=== PATIENT | male | born 1965 | race Caucasian/White ===

== ENCOUNTER 2024-03-12 14:34 | Emergency (ER) | payer OTHER, SELFPAY ==
[2024-03-12 14:44] VITALS: BP 145/81; PULSE 82; RESP 20; TEMP 36.3; O2SAT 99
--- NOTE | 2024-03-12 15:08 | ED.ANIMALBIT ---
HPI - Animal Bite General Chief Complaint: Animal Bite Stated Complaint: dog - bite or scratch Time Seen by Provider: 03/12/24 14:56 Source: patient and RN notes reviewed Mode of arrival: ambulatory Limitations: no limitations History of Present Illness HPI narrative: Patient presents today with a dog bite or scratch to the posterior right calf that was sustained approximately 45 minutes prior to arrival. 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 Patient is unsure which. Patient is not up-to-date on his tetanus vaccine. He is unsure of the dog's status. Related Data Home Medications Medication Instructions Recorded Confirmed amlodipine 5 mg tablet 5 mg PO BID 11/24/20 dapagliflozin propanediol 10 mg 10 mg PO DAILY 11/24/20 tablet (Farxiga) metformin 1,000 mg tablet 1,000 mg PO BID 11/24/20 ramipril 10 mg tablet 10 mg PO DAILY 11/24/20 semaglutide 1 mg/dose (2 mg/1.5 1 mg subcut WEEKLY 11/24/20 mL) subcutaneous pen injector (Ozempic) simvastatin 20 mg tablet 20 mg PO DAILY 11/24/20 tirzepatide 10 mg/0.5 mL mg subcut 03/12/24 subcutaneous pen injector (Mounjaro) Allergies Allergy/AdvReac Type Severity Reaction Status Date / Time penicillamine Allergy Unknown unknown Verified 11/24/20 14:02 Review of Systems Review of Systems: CONSTITUTIONAL: Denies body aches, fever, chills, or sweats. EYES: Denies visual changes, redness, or discharge. ENT: Denies rhinorrhea, congestion, sore throat, or otalgia. CARDIOVASCULAR: Denies chest pain, palpitations, or edema. RESPIRATORY: Denies cough or dyspnea. GASTROINTESTINAL: Denies abdominal pain, nausea, vomiting, or diarrhea. GENITOURINARY: Denies dysuria or hematuria. SKIN: + wound to posterior right calf MUSCULOSKELETAL: Denies back pain, joint pain, or myalgia. NEUROLOGIC: Denies headache, numbness, tingling, or weakness. PSYCH: Denies depression or anxiety. [facility] Past Medical History Medical History Abdominal obesity Arthritis Cataract Diabetes H/O: HTN (hypertension) Patellar tendonitis Skin cancer Surgical History Surgical History History of appendectomy Social History Social History Smoking status: Unknown if ever smoked Alcohol intake: current Comments At time of signature, I have reviewed and agree with nursing past medical, surgical, social and family history unless otherwise noted. Please see nursing chart for further information. There is no relevant family history pertinent to the presenting complaint Exam Narrative: GENERAL: Well-appearing, well-nourished, and in no acute distress. HEAD: Normocephalic, atraumatic. EYES: EOMI. No redness or drainage. Conjunctivae normal. ENT: Mucous membranes pink and moist. NECK: Normal AROM. CHEST: No respiratory distress. EXTREMITIES: Right lower le approx 2x2cm irregularly-shaped superficial skin avulsions to the right posterior calf. No active bleeding. SKIN: Warm, dry, no rash. Capillary refill normal. Normal skin turgor. NEURO: No focal deficits. Alert and oriented x3. Gait steady. PSYCH: Normal affect. No signs of depression or anxiety. Course Course Level of Care: Express Care Visit Vital Signs Vital signs: Vital Signs Temperature 97.3 F L 03/12/24 14:44 Pulse Rate 82 03/12/24 14:44 Respiratory Rate 20 03/12/24 14:44 Blood Pressure 145/81 H 03/12/24 14:44 Pulse Oximetry 99 03/12/24 14:44 Oxygen Delivery Room Air 03/12/24 14:44 Temperature 97.3 F L 03/12/24 14:44 Pulse Rate 82 03/12/24 14:44 Respiratory Rate 20 03/12/24 14:44 Blood Pressure 145/81 H 03/12/24 14:44 Pulse Oximetry 99 03/12/24 14:44 Oxygen Delivery Room Air 03/12
[2024-03-12] MEDS: TETANUS,DIPHTHERIA,AC PERTUSSIS ADULT (0.5 ML) BOOSTRIX IM (15:20)
== END 2024-03-12 15:27 | disposition home or self-care (01) ==
PROVIDERS: Emergency Provider Nurse Practitioner
DX: S80.811A Abrasion, right lower leg, initial encounter (principal); W54.8XXA Other contact with dog, initial encounter; Z20.822 Contact with and (suspected) exposure to COVID-19; E11.9 Type 2 diabetes mellitus without complications; I10 Essential (primary) hypertension; M19.90 Unspecified osteoarthritis, unspecified site; E66.9 Obesity, unspecified; Z68.29 Body mass index [BMI] 29.0-29.9, adult; Z85.828 Personal history of other malignant neoplasm of skin
CPT/HCPCS: 90471; 90715; 99213; G0463